=== PATIENT | female | born 1965 | race Caucasian/White ===

== ENCOUNTER 2020-02-08 11:42 | Outpatient (CLI) | payer OTHER, SELFPAY ==
[2020-02-08 12:25] LABS: Hematocrit 33.5 % (37.0-47.0); Hemoglobin 11.9 g/dL (12.0-15.0)
[2020-02-08 12:42] LABS: Alanine Aminotransferase 160 U/L (4-35); Albumin Level 3.9 g/dL (3.5-5.1); Alkaline Phosphatase 183 U/L (38-126); Aspartate Amino Transferase 673 U/L (14-36); Bilirubin,Total 1.2 mg/dL (0.2-1.3); Blood Urea Nitrogen 9 mg/dL (7-17); Carbon Dioxide 30 mmol/L (22-30); Chloride 88 mmol/L (98-107); Estimated Glomerular Filt Rate > 60; Glucose 129 mg/dL (65-105); Potassium 3.7 mmol/L (3.4-5.0); Sodium 129 mmol/L (137-145)
[2020-02-08 13:03] LABS: Free T4 Free Thyroxine 1.19 ng/mL (0.78-2.19)
[2020-02-11 02:56] LABS: FSH 26.8 mIU/mL (***)
== END 2020-02-08 11:43 | disposition home or self-care (01) ==
PROVIDERS: Visit Provider Obstetrics & Gynecology
DX: N93.9 Abnormal uterine and vaginal bleeding, unspecified (principal)
CPT/HCPCS: 36415; 80053; 83001; 84439; 84443; 85014; 85018

== ENCOUNTER 2022-07-14 12:57 | Emergency (ER) | payer OTHER, SELFPAY ==
--- NOTE | 2022-07-14 13:00 | ED.SKABFB ---
HPI - Skin/Abscess/Foreign Bdy General Chief complaint: Wound/Laceration Stated complaint: Remove Stitches Time Seen by Provider: 07/14/22 13:00 Source: patient and RN notes reviewed History of Present Illness HPI narrative: Patient is a 57-year-old female who presents the urgent care with request for suture removal above the right eye. Patient states that she fell on Saturday and 5 sutures were placed. Patient denies of any redness, swelling or complications with the sutures. No other acute complaints. No acute distress noted. Patient aware of plan of care. Some parts of this dictation were generated by voice recognition software and may contain typographical and/or grammatical inaccuracies. Related Data Home Medications Medication Instructions Recorded Confirmed hydroxychloroquine 200 mg tablet 200 mg PO DAILY 10/05/19 02/21/20 clonidine HCl 0.1 mg tablet 0.1 mg PO TID 07/14/22 07/14/22 ergocalciferol (vitamin D2) 1,250 1,250 mcg PO WEEKLY 07/14/22 07/14/22 mcg (50,000 unit) capsule hydroxyzine pamoate 50 mg capsule 50 mg PO QID 07/14/22 07/14/22 loratadine 10 mg tablet 10 mg PO DAILY 07/14/22 07/14/22 pantoprazole 40 mg tablet,delayed 40 mg PO DAILY 07/14/22 07/14/22 release sertraline 50 mg tablet mg 07/14/22 thiamine HCl (vitamin B1) 100 mg 100 mg PO DAILY 07/14/22 07/14/22 tablet (Vitamin B-1) trazodone 50 mg tablet 50 mg PO DAILY 07/14/22 07/14/22 Allergies Allergy/AdvReac Type Severity Reaction Status Date / Time Penicillins Allergy Mild Hives Verified 07/14/22 13:17 Review of Systems Review of Systems: CONSTITUTIONAL: Denies fever, chills, or sweats. EYES: Denies visual changes, redness, or discharge. ENT: Denies rhinorrhea, congestion, sore throat, or otalgia. CARDIOVASCULAR: Denies chest pain, palpitations, or edema. RESPIRATORY: Denies cough or dyspnea. GASTROINTESTINAL: Denies abdominal pain, nausea, vomiting, or diarrhea. GENITOURINARY: Denies dysuria or hematuria. SKIN: Reports of suture removal MUSCULOSKELETAL: Denies back pain, joint pain, or myalgia. NEUROLOGIC: Denies headache, numbness, or weakness. All other systems reviewed are negative, except as documented in HPI. [facility] Past Medical History Medical History (Updated 07/14/22 @ 13:29 by JOSE Pizano) Anxiety and depression GERD (gastroesophageal reflux disease) Hypertension Postmenopausal Rheumatoid arthritis Surgical History Surgical History (Updated 10/08/19 @ 17:08 by Radha Booth NP) H/O dilation and curettage Family History Family History Grandparent Hypertension Cerebrovascular accident Diabetes mellitus Social History Social History (Updated 10/08/19 @ 17:02 by Radha Booth NP) Smoking packs per day: 1 Smoking cigarettes per day: 20.0 Years smoked: 20 Smoking pack-years: 20.00 Smoking status: Current every day smoker Alcohol intake: current Comments At the time of my signature, I reviewed and agree with the nursing past medical, surgical, social, and family history. There is no relevant family history pertinent to the patient complaint. Exam Narrative: GENERAL: This is a well-nourished, well-developed patient, in no apparent distress. HEAD: normocephalic, atraumatic. EYES: PERRL. Sclera clear/white. Vision is grossly intact. EARS: External ears normal NOSE: External nose normal with no obvious nasal discharge, nares without redness, no rhinorrhea. THROAT: Mucous membranes moist, posterior pharynx clear. NECK: Neck supple SKIN: 5 sutures noted to 3cm linear approximated wound above the right eye NEURO: awake, alert, and oriented to person, place and time. There were no obvious focal neurologic abnormalities. Course Course Level of Care: Express Care Visit Vital Signs Vital signs: Vital Signs Temperature 98.4 F 07/14/22 13:03 Pulse Rate 99 07/14/22 13:03 Respiratory Rate 16 07/14/22 13:03
[2022-07-14 13:03] VITALS: BP 94/54; PULSE 99; RESP 16; TEMP 36.9; O2SAT 100
== END 2022-07-14 13:33 | disposition home or self-care (01) ==
PROVIDERS: Emergency Provider Nurse Practitioner Family
DX: S01.81XD Laceration without foreign body of other part of head, subsequent encounter (principal); X58.XXXD Exposure to other specified factors, subsequent encounter; F41.9 Anxiety disorder, unspecified; F32.A Depression, unspecified; K21.9 Gastro-esophageal reflux disease without esophagitis; I10 Essential (primary) hypertension; M06.9 Rheumatoid arthritis, unspecified
CPT/HCPCS: 99211; G0463